=== PATIENT | female | born 1980 | race Caucasian/White ===

== ENCOUNTER → 2019-08-14 | Outpatient (CLI) | payer SELFPAY ==
--- NOTE | 2019-08-14 12:23 | RADIOLOGY REPORT (SQ) ---
EXAM DESCRIPTION: SHOULDER LEFT 2 OR MORE VIEWS COMPLETED DATE/TIME: 08/14/2019 11:03 am REASON FOR STUDY: PAIN IN LEFT SHOULDER M25.512 PAIN IN LEFT SHOULDER COMPARISON: None. NUMBER OF VIEWS: Three views. TECHNIQUE: Internal rotation, external rotation, and Y view images acquired of the left shoulder. LIMITATIONS: None. FINDINGS: MINERALIZATION: Normal. BONES: No acute fracture. JOINTS: No dislocation. VISUALIZED LUNGS AND RIBS: No pneumothorax or rib fracture. SOFT TISSUES: No radiopaque foreign body. OTHER: The round sclerotic lesion with defined margins that projects within the glenoid could represe nt an enostosis. IMPRESSION: No acute osseous abnormality of the left shoulder. TECHNICAL DOCUMENTATION: JOB ID: [id number] 2010 [email or web address] All Rights Reserved Reading location - IP/workstation name: [email or web address]
== END ==
LOC: CCC 10:49
DX: M25.512 Pain in left shoulder (principal)